=== PATIENT | female | born 1935 | race Caucasian/White ===

== ENCOUNTER 2023-05-23 17:09 | Emergency (ER) | payer MEDICARE ==
[~2023-05-23] VITALS: Ht 170.2 cm; Wt 71.2 kg
[2023-05-23] MEDS ORDERED: KETOROLAC 15MG/ML VIAL (15MG/ML) IV ONE (19:30)
[2023-05-23] MEDS ORDERED: KETOROLAC 30MG VIAL (30MG/ML) ONE (19:42)
[2023-05-23] MEDS ORDERED: DOCU-116 PO (21:06)
[2023-05-23] MEDS ORDERED: IBUP-2070 PO (21:06)
[2023-05-23] MEDS ORDERED: ACET-2079 PO (21:06)
[2023-05-23 21:25] VITALS: BP 132/70; PULSE 66; RESP 18; O2SAT 99
== END 2023-05-23 21:27 | disposition home or self-care (01) ==
LOC: EDH 17:09
DX: M48.56XA Collapsed vertebra, not elsewhere classified, lumbar region, initial encounter for fracture (principal); M48.54XA Collapsed vertebra, not elsewhere classified, thoracic region, initial encounter for fracture; M54.50 Low back pain, unspecified
CPT/HCPCS: 99285; 72131; 96374; 72128; J1885

== ENCOUNTER → 2024-06-23 | Outpatient (CLI) | payer MEDICARE ==
[~2024-06-23] MED LIST: ALPR0.5T PO
--- NOTE | 2024-06-23 14:13 | HMCIMG ---
CT HEAD/BRAIN W/O CONTRAST HISTORY: Amnesia COMPARISON: None TECHNIQUE: Multiple sequential axial images of the head were obtained from the base of the skull through vertex. Patient was not given contrast through intravenous route. FINDINGS: The ventricles and extraventricular CSF spaces are active There is no midline shift, mass effect or herniation. No acute intracranial bleed is seen. Visualized portion of the paranasal sinuses are grossly within normal limits. There is atherosclerosis. IMPRESSION: 1. No acute intracranial bleed is seen. 2. Atrophy with white matter changes. CT was performed with one or more following dose reduction techniques: automated exposure control, adjustment of the mA and kv according to patient's size, or use of a iterative reconstruction technique.
--- NOTE | 2024-06-23 14:20 | HMCIMG ---
THORACIC SPINE 2VWS HISTORY: L1 compression fracture COMPARISON: None FINDINGS: 2 images of thoracic spine were obtained. There is scoliosis. There are degenerative changes with spondylosis. Aortic calcifications are seen. There is straightening of normal lordotic curvature which may be related to muscle spasm or positioning. No loss of vertebral height is seen. No fracture or dislocation is seen. Degenerative changes are seen. IMPRESSION: 1. No fracture is seen.
--- NOTE | 2024-06-23 14:21 | HMCIMG ---
LUMBAR SPINE 2-3VWS HISTORY: Compression fracture of L1 COMPARISON: None FINDINGS: 3 images of lumbar spine were obtained. There is straightening of normal lordotic curvature which may be related to muscle spasm or positioning. There is compression fracture noted of L1 with 50% loss of height. Vascular calcifications are seen. Disc space narrowing is seen at the L5-S1 level.. Degenerative changes are seen. IMPRESSION: 1. Compression fracture of L1 with 50% loss of height. DJD.
== END | disposition home or self-care (01) ==
LOC: RAH 13:02
PROVIDERS: ATTEND Family Medicine
DX: S32.010D Wedge compression fracture of first lumbar vertebra, subsequent encounter for fracture with routine healing (principal); S22.080D Wedge compression fracture of T11-T12 vertebra, subsequent encounter for fracture with routine healing; G31.89 Other specified degenerative diseases of nervous system; M47.816 Spondylosis without myelopathy or radiculopathy, lumbar region; M48.07 Spinal stenosis, lumbosacral region; M47.814 Spondylosis without myelopathy or radiculopathy, thoracic region; I70.0 Atherosclerosis of aorta; R41.3 Other amnesia; M41.84 Other forms of scoliosis, thoracic region; X58.XXXD Exposure to other specified factors, subsequent encounter
CPT/HCPCS: 70450; 72070; 72100

== ENCOUNTER → 2024-08-05 | Outpatient (CLI) | payer MEDICARE ==
--- NOTE | 2024-08-05 12:46 | HMCIMG ---
DEXA BONE DENSITY SURVEY HISTORY: Menopause COMPARISON: None FINDINGS: Bone densitometry study was performed. Bone mineral density of the lumbar spine is 0.716 gram per centimeter square which corresponds to a T score of -1.2 and a Z score of 1.3. Bone mineral density of the left hip is 0.821 grams per centimeter square which corresponds to a T score of -1.0 and a Z score of 1.3. IMPRESSION: 1. Normal bone mineral density of the lumbar spine and left hip.
== END | disposition home or self-care (01) ==
LOC: RAH 11:30
PROVIDERS: ATTEND Family Medicine
DX: Z78.0 Asymptomatic menopausal state (principal)
CPT/HCPCS: 77080